=== PATIENT | male | born 1995 | race Caucasian/White ===

== ENCOUNTER → 2017-05-01 | Outpatient (CLI) | payer MEDICAID ==
[~2017-05-01] MED LIST: GADOBUTROL 10 ML VIAL IVP ONE
== END ==
LOC: FIMAGING 12:16
PROVIDERS: ATTEND Physician Assistant Medical
DX: G40.909 Epilepsy, unspecified, not intractable, without status epilepticus (principal)
CPT/HCPCS: A9585

== ENCOUNTER → 2017-05-09 | Outpatient (CLI) | payer MEDICAID ==
--- NOTE | 2017-05-09 19:17 | CPEEG ---
[f rep st] ELECTROENCEPHALOGRAM A 4-HOUR VIDEO EEG DATE OF STUDY: 05/09/2017 INTERPRETATION: This 4-hour video EEG recording is normal. There were no potentially epileptogenic abnormalities present during the awake or sleep recordings. During the video EEG monitoring session, the patient did not have any clinical events. REPORT: This 4-hour video EEG recording contained 9-10 Hz alpha activity over the posterior head regions. The background activity was normal and symmetric. There was no abnormal activation at rest, during photic stimulation, or hyperventilation. The patient became drowsy and fell into sustained sleep during the study. There was no abnormal activation during drowsiness, sustained sleep, or during times of arousal. The patient did not have any clinical events during the video EEG monitoring session. /[id number]/MODL MTDD
== END ==
LOC: FCPNEURO 08:51
PROVIDERS: ATTEND Psychiatry & Neurology Neurology
DX: G40.909 Epilepsy, unspecified, not intractable, without status epilepticus (principal)

== ENCOUNTER 2017-05-20 17:43 | Emergency (ER) | payer MEDICAID ==
[2017-05-20 18:00] VITALS: TEMP 98.1
[2017-05-20] MEDS ORDERED: ONDANSETRON 4 MG/2 ML VIAL ONE (18:01)
[2017-05-20] MEDS ORDERED: ONDANSETRON 4 MG/2 ML VIAL IVP ONE (18:04)
[2017-05-20] MEDS ORDERED: NS 1,000 ML IV ONE (18:04)
--- NOTE | 2017-05-20 18:11 | EDPHY ---
H & P Time Seen by Provider: 05/20/17 17:55 HPI/ROS: CHIEF COMPLAINT: Seizure x2 HISTORY OF PRESENT ILLNESS: 22-year-old man presents with his mother. He has had a seizure disorder diagnosed since age 18 and is currently transitioning from Dilantin to Keppra. In fact tomorrow was intended to be his last dose of Dilantin; he is tapering off since he was having breakthrough seizures on it. Today he had 2 seizures, the 1st one is inferred, because his roommates found him confused having bit his tongue at 2:00 p.m. When his mother came to pick him up his roommates report a 2nd seizure lasting 45 minutes around 4:30 or 5: 00 p.m.. Grand mal in nature. Currently the patient's chief complaint is he has severe nausea. REVIEW OF SYSTEMS: Eye: no change in vision ENT: no sore throat Cardiac: no chest pain or syncope Pulmonary: no cough or SOB Abdomen: Vomiting but no abdominal pain Musculoskeletal: no back pain or neck pain Skin: no rash Neuro: Mild headache Constitutional: no fever : no urinary symptoms A comprehensive 10 point review of systems is otherwise negative aside from elements mentioned in the history of present illness. PAST MEDICAL HISTORY: Seizure disorder Social history: Here with his mother, no alcohol General Appearance: Alert and conversant, cooperative. Eyes: No scleral icterus. ENT, Mouth: Left sided tongue abrasion, not bleeding Respiratory: Normal respiratory effort, breath sounds equal, lungs are clear to auscultation. Cardiovascular: Regular rate and rhythm. Gastrointestinal: Abdomen is soft and non tender. Neurological: Alert and oriented x3. Normally conversant. Face symmetric, normal movement and sensation in all extremities. Not tremulous. Toes downgoing bilaterally and no clonus. Skin: Warm and dry, no rashes. Musculoskeletal: No peripheral edema and no joint swelling. No spinal tenderness or stiff neck. Psychiatric: Not agitated. Emergency Department course/MDM: Mother describes the patient's last seizure was a week ago on Saturday. Currently the patient's neurologic examination is normal. He is Tanner Stauffer's patient. Call to associated neurologist, discussed with Dr. Casas. Zofran 4 mg IV for nausea and vomiting. 1954: Reviewed results with the patient and mother. Reviewed my discussion with Dr. Casas, and his recommendations for an additional 500 mg IV Keppra and then to discharge home with follow up by phone tomorrow with his Neurology provider. They state they are comfortable with that plan, we will observe him for another 45 minutes and then discharge. No further seizure activity or vomiting while in the emergency department. Smoking Status: Current every day smoker Constitutional: Initial Vital Signs Temperature (C) 36.7 C 05/20/17 17:57 Heart Rate 50 L 05/20/17 17:57 Respiratory Rate 16 05/20/17 17:57 Blood Pressure 124/83 H 05/20/17 17:57 O2 Sat (%) 100 05/20/17 17:57 O2 Delivery Mode Room Air Allergies/Adverse Reactions: No Known Allergies Allergy (Unverified 04/16/16 09:44) Home Medications: Medication Instructions Recorded Benatonin 04/16/16 Medical Decision Making Differential Diagnosis: Differential diagnosis considered for a seizure including but not limited to electrolyte abnormality, alcohol withdrawal, medication noncompliance, head injury, and breakthrough seizure. Consult/Admit Bed Type: [facility] deepti Stauffer 1814, Keppra 500mgIV and DC home - Data Points Laboratory Results: Laboratory Results 05/20/17 18:05 05/20/17 18:05 Medications Given: Discontinued Medications Sodium Chloride (Ns) 1,000 mls @ 0 mls/hr IV ONCE ONE PRN Reason: Wide Open Stop: 05/20/17 18:05 Last Admin: 05/20/17 18:05 Dose: 1,000 mls Levetiracetam 500 mg/ Sodium (Chloride) 105 mls @ 420 mls/hr IV EDNOW ONE Stop: 05/20/17 18:29 Last Admin: 05/20/17 19:38 Dose: 105 mls Ondansetron HCl (Zofran) 4 mg IVP EDNOW ONE Stop: 05/20/17 18:05 Last Admin: 05/20/17 18:05 Dose: 4 mg Departure - Departure Disposition: Home, Routine, Self-Care Clinical Impression: Seizure disorder Condition: Fair Instructions: Levetiracetam (By injection), Epilepsy (ED) Referrals: Job Stauffer PA [Physician Drawing In Hand] - 1 day without fail (per )
[2017-05-20] MEDS ORDERED: levETIRAcetam 500 MG in NS 100 ML IV ONE (18:15)
[2017-05-20 18:28] LABS: % IMMATURE GRANULYOCYTES 0.5 % (0.0-1.1); ABSOLUTE IMMATURE GRANULOCYTES 0.05 10^3/uL (0.00-0.10); ADD DIFF? NO; ADD MORPH? NO; ADD SCAN? NO; ATYPICAL LYMPHOCYTE FLAG 0 (0-99); FRAGMENT RBC FLAG 0 (0-99); HEMATOCRIT 44.1 % (40.0-51.0); HEMOGLOBIN 15.3 g/dL (13.7-17.5); LEFT SHIFT FLG 0 (0-99); LIPEMIA HEMOLYSIS FLAG 90 (0-99); MEAN CELL HEMOGLOBIN CONCENTR. 34.7 g/dL (32.4-36.7); MEAN CELL VOLUME 83.7 fL (81.5-99.8); MEAN PLATELET VOLUME 10.2 fL (8.7-11.7); PLATELET CLUMPS FLAG 0 (0-99); PLATELET COUNT 249 10^3/uL (150-400); RED BLOOD CELL COUNT 5.27 10^6/uL (4.40-6.38); RED CELL DISTRIBUTION WIDTH 13.1 % (11.5-15.2)
[2017-05-20 18:30] LABS: ANION GAP 17 mEq/L (8-16); CALCIUM 10.4 mg/dL (8.5-10.4); CARBON DIOXIDE 20 mEq/l (22-31); CHLORIDE 102 mEq/L (97-110); CREATININE 0.7 mg/dL (0.7-1.3); GLOMERULAR FILTRATION RATE > 60; GLUCOSE 103 mg/dL (70-100); SODIUM 139 mEq/L (134-144); SPECIMEN HEMOLYSIS 108
[2017-05-20 20:52] VITALS: BP 121/69; PULSE 84; RESP 20; O2SAT 93
== END 2017-05-20 20:52 | disposition home or self-care (01) ==
DX: G40.909 Epilepsy, unspecified, not intractable, without status epilepticus (principal); F17.200 Nicotine dependence, unspecified, uncomplicated
CPT/HCPCS: 96374; J1953; J2405

== ENCOUNTER 2017-05-20 21:55 | Observation (INO) | payer MEDICAID ==
[2017-05-20] MEDS ORDERED: NS 1,000 ML IV ONE (22:06)
[2017-05-20] MEDS ORDERED: LORazepam 2 MG/ML INJ IVP ONE (22:06)
--- NOTE | 2017-05-20 22:08 | EDPHY ---
H & P Stated Complaint: recurrent seizure; grand mal approx 2 min assisted to floor HPI/ROS: HPI CHIEF COMPLAINT: Seizure HISTORY OF PRESENT ILLNESS: This patient very pleasant 22-year-old male, was recently here in the emergency room for seizure x2 today. He now presents back to the emergency room the seizure for 3rd time. He has been transitioning off Dilantin to Keppra. Last dose of Keppra tomorrow. He was given a 500 mg IV dose of Keppra prior to being discharged home. He reports back to the emergency room by private vehicle after he had a seizure that lasted approximately 2 minutes. Witnessed by his mom generalized tonic-clonic. Postictal state. They return by private vehicle. Patient this time has no complaints. He is alert and oriented. No active seizure activity in the emergency room. Past Medical History: Seizure disorder Past Surgical History: No recent surgery Social History: Denies daily use of drugs alcohol tobacco products. Family History: Noncontributory ROS REVIEW OF SYSTEMS: A comprehensive 10 point review of systems is otherwise negative aside from elements mentioned in the history of present illness. Exam Constitutional appears well nontoxic thin appearing, triage nursing summary reviewed, vital signs reviewed, awake/alert. Eyes normal conjunctivae and sclera, EOMI, PERRLA. HENT oropharynx shows bruising to bilateral tongue, normal inspection, atraumatic, moist mucus membranes, no epistaxis, neck supple/ no meningismus, no raccoon eyes. Respiratory clear to auscultation bilaterally, normal breath sounds, no respiratory distress, no wheezing. Cardiovascular rate normal, regular rhythm, no murmur, no edema, distal pulses normal. Gastrointestinal soft, non-tender, no rebound, no guarding, normal bowel sounds, no distension, no pulsatile mass. Genitourinary no CVA tenderness. Musculoskeletal no midline vertebral tenderness, full range of motion, no calf swelling, no tenderness of extremities, no meningismus, good pulses, neurovascularly intact. Skin pink, warm, & dry, no rash, skin atraumatic. Neurologic awake, alert and oriented x 3, AAOx3, moves all 4 extremities equally, motor intact, sensory intact, CN II-XII intact, normal cerebellar, normal vision, normal speech. Psychiatric normal mood/affect. Heme/Lymph/Immune no lymphadenopathy. Differential Diagnosis: Includes but is not limited to in a particular order, epilepsy, seizure, breakthrough seizure, electrolyte disturbance, transitioning from [place] Keppra which is causing him to have a seizure Medical Decision Making: Given this patient has now had 3 seizures in 12 hours he will be admitted to the hospital for further observation for neurology to see as well. Here in emergency room I will give him IV Ativan. IV fluids. Check basic blood work and admit to the hospitalist service. Re-evaluation: 2215: I have consult the hospitalist service and spoke with Dr. Denney who agrees to admit this patient. Reason for admission multiple seizures today. Additionally will consult Neurology. Plan will be to admit. He is not in status. IV Keppra 500mg, and 1 mg IV ativan. Admit for neuro to see in am. 2226: Spoke with Kymberly Fontana with [facility] Recommend 1 Gram Keppra load. Admit to hospital. Neuro to see. Source: Patient - Personal History Current Tetanus/Diphtheria Vaccine: Yes - Medical/Surgical History Hx Asthma: No Hx Chronic Respiratory Disease: No Hx Diabetes: No Hx Cardiac Disease: No Hx Renal Disease: No Hx Cirrhosis: No Hx Alcoholism: No Hx HIV/AIDS: No Hx Splenectomy or Spleen Trauma: No Other PMH: PMHx: sz, daily THC use. PSHx: bilat hernia repairs, ear tubes - Social History Smoking Status: Current every day smoker Constitutional: Initial Vital Signs Temperature (C) 37.1 C 05/20/17 21:57 Heart Rate 87 05/20/17 21:57 Respiratory Rate 14 05/20/17 21:57 Blood Pressure 122/63 H 05/20/17 21:57 O2 Sat (%) 97 05/20/17 21:57 O2 Delivery Mode Room Air Allergies/Adverse Reactions: No Known Allergies Allergy (Unverified 04/16/16 09:44) Home Medications: Medication Instructions Recorded Albuterol [Proventil Inhaler HFA 1 - 2 puffs IH DAILY PRN 05/21/17 (*)] Herbals/Supplements -Info Only 1 ea PO DAILY 05/21/17 Loratadine [Claritin 10 mg] 10 mg PO DAILY PRN 05/21/17 levETIRAcetam [Keppra 500 mg (*)] 2,500 mg PO HS 05/21/17 Medical Decision Making - Data Points Medications Given: Discontinued Medications Sodium Chloride (Ns) 1,000 mls @ 0 mls/hr IV ONCE ONE PRN Reason: Wide Open Stop: 05/20/17 22:07 Last Admin: 05/20/17 22:34 Dose: 1,000 mls Levetiracetam 1,000 mg/ Sodium (Chloride) 110 mls @ 440 mls/hr IV EDNOW ONE Stop: 05/20/17 22:41 Last Admin: 05/20/17 22:52 Dose: 110 mls Levetiracetam 1,000 mg/ Sodium (Chloride) 110 mls @ 440 mls/hr IV EDNOW ONE Stop: 05/20/17 22:54 Last Admin: 05/21/17 01:27 Dose: 110 mls Influenza Virus Vaccine Quadrival (Fluarix Quad [id number]) 0.5 ml IM .ONCE ONE Stop: 05/21/17 10:09 Last Admin: 05/21/17 11:48 Dose: 0.5 ml Lorazepam (Ativan Injection) 1 mg IVP EDNOW ONE Stop: 05/20/17 22:07 Last Admin: 05/20/17 22:34 Dose: 1 mg Departure - Departure Disposition: [facility] Clinical Impression: Seizure disorder Condition: Good
[2017-05-20] MEDS ORDERED: ONDANSETRON 4 MG/2 ML VIAL IVP PRN (22:16)
[2017-05-20] MEDS ORDERED: LORazepam 2 MG/ML INJ IVP PRN (22:16)
[2017-05-20] MEDS ORDERED: ONDANSETRON DISINTEGRATING 4 MG TAB PO PRN (22:16)
[2017-05-20] MEDS ORDERED: ACETAMINOPHEN 325 MG TAB PO PRN (22:16)
[2017-05-20] MEDS ORDERED: levETIRAcetam 1,000 MG in NS 100 ML IV ONE ×2 (22:27→22:40)
[2017-05-20] MEDS ORDERED: levETIRAcetam 500 MG in NS 100 ML IV SCH (22:30)
[2017-05-20 22:37] LABS: % IMMATURE GRANULYOCYTES 0.3 % (0.0-1.1); ABSOLUTE IMMATURE GRANULOCYTES 0.03 10^3/uL (0.00-0.10); ADD DIFF? NO; ADD MORPH? NO; ADD SCAN? NO; ATYPICAL LYMPHOCYTE FLAG 0 (0-99); FRAGMENT RBC FLAG 0 (0-99); HEMATOCRIT 38.8 % (40.0-51.0); HEMOGLOBIN 13.6 g/dL (13.7-17.5); LEFT SHIFT FLG 0 (0-99); LIPEMIA HEMOLYSIS FLAG 90 (0-99); MEAN CELL HEMOGLOBIN 29.5 pg (27.9-34.1); MEAN CELL HEMOGLOBIN CONCENTR. 35.1 g/dL (32.4-36.7); MEAN CELL VOLUME 84.2 fL (81.5-99.8); MEAN PLATELET VOLUME 10.3 fL (8.7-11.7); PLATELET CLUMPS FLAG 10 (0-99); PLATELET COUNT 230 10^3/uL (150-400); RED BLOOD CELL COUNT 4.61 10^6/uL (4.40-6.38); RED CELL DISTRIBUTION WIDTH 13.1 % (11.5-15.2)
--- NOTE | 2017-05-20 23:02 | PDGENHP ---
History and Physical - Chief Complaint Seizure - History of Present Illness 22 yo M w/ hx of epilepsy presents with a seizure. He has long history of epilepsy with incomplete control of seizure activity as of late. He has had 4-5 seizures in the past few months so his neurologist was transitioning therapy from Dilantin to Keppra. He is currently taking Keppra 2g qHS and Dilantin 100 mg qD as part of a several week taper. Today he likely had an unwitnessed seizure around midday before his roommates came home as they noticed he had bit his tongue. He then had a witnessed GTC around 16:30 that lasted 4 minutes and stopped without intervention. At that point he was brought to ED for evaluation, given additional Keppra, and sent home. Once home he had another seizure around 17:30, described again as GTC. At the time of my evaluation patient is alert, oriented, and asymptomatic. He denies any recent illness, change in sleep habits, or new substance use to explain increase seizure frequency. History Information - Allergies/Home Medication List Allergies/Adverse Reactions: No Known Allergies Allergy (Unverified 04/16/16 09:44) Home Medications: Benatonin 04/16/16 [Last Taken Unknown] I have personally reviewed and updated: family history, medical history - Past Medical History Additional medical history: Epilepsy - Family History Positive for: cancer - Social History Smoking Status: Current every day smoker Drug Use: None Review of Systems Review of Systems: ROS: 10pt was reviewed & negative except for what was stated in HPI & below Physical Exam Physical Exam: Temp Pulse Resp BP Pulse Ox 37.1 C 80 16 117/58 L 97 05/20/17 21:57 05/20/17 22:54 05/20/17 22:54 05/20/17 22:54 05/20/17 22:54 Constitutional: no apparent distress, appears nourished Eyes: PERRL, EOMI Ears, Nose, Mouth, Throat: moist mucous membranes, no oral mucosal ulcers, other (Facial abrasions noted) Cardiovascular: regular rate and rhythym, no murmur, rub, or gallop Respiratory: no respiratory distress, clear to auscultation Gastrointestinal: normoactive bowel sounds, soft, non-tender abdomen Skin: warm, normal color Musculoskeletal: full muscle strength, no muscle tenderness Neurologic: AAOx3, sensation intact bilaterally, CN II-XII Intact, No weakness, No numbness, No facial droop Psychiatric: interacting appropriately, not anxious Lab Data & Imaging Review 05/20/17 22:30 05/20/17 22:30 WBC 9.04 10^3/uL (3.80-9.50) 05/20/17 22:30 RBC 4.61 10^6/uL (4.40-6.38) 05/20/17 22:30 Hgb 13.6 g/dL (13.7-17.5) L 05/20/17 22:30 Hct 38.8 % (40.0-51.0) L 05/20/17 22:30 MCV 84.2 fL (81.5-99.8) 05/20/17 22:30 MCH 29.5 pg (27.9-34.1) 05/20/17 22:30 MCHC 35.1 g/dL (32.4-36.7) 05/20/17 22:30 RDW 13.1 % (11.5-15.2) 05/20/17 22:30 Plt Count 230 10^3/uL (150-400) 05/20/17 22:30 MPV 10.3 fL (8.7-11.7) 05/20/17 22:30 Neut % (Auto) 89.0 % (39.3-74.2) H 05/20/17 22:30 Lymph % (Auto) 6.0 % (15.0-45.0) L 05/20/17 22:30 [place] % (Auto) 4.6 % (4.5-13.0) 05/20/17 22:30 Eos % (Auto) 0.0 % (0.6-7.6) L 05/20/17 22:30 Baso % (Auto) 0.1 % (0.3-1.7) L 05/20/17 22:30 Nucleat RBC Rel Count 0.0 % (0.0-0.2) 05/20/17 22:30 Absolute Neuts (auto) 8.04 10^3/uL (1.70-6.50) H 05/20/17 22:30 Absolute Lymphs (auto) 0.54 10^3/uL (1.00-3.00) L 05/20/17 22:30 Absolute Monos (auto) 0.42 10^3/uL (0.30-0.80) 05/20/17 22:30 Absolute Eos (auto) 0.00 10^3/uL (0.03-0.40) L 05/20/17 22:30 Absolute Basos (auto) 0.01 10^3/uL (0.02-0.10) L 05/20/17 22:30 Absolute Nucleated RBC 0.00 10^3/uL (0-0.01) 05/20/17 22:30 Immature Gran % 0.3 % (0.0-1.1) 05/20/17 22:30 Immature Gran # 0.03 10^3/uL (0.00-0.10) 05/20/17 22:30 Imaging Review: No abnormalities seen on MRI Brain 05/01 w/wo. Assessment & Plan Assessment: 22 yo M w/ known epilepsy presents with multiple seizures on day of admission. Plan: 1. Epilepsy with multiple seizures on day of admission - No clear trigger for increased seizure activity (no illness, change in sleep, stress, or substance use). Patient recently tapering off of Dilantin and transitioning to Keppra therapy, of which he takes 2g qHS. Laboratory work-up unremarkable. Phenytoin level undetectable, but this is to be expected noting he is now only on 100 mg qD. MRI Brain on 05/01 showed no abnormalities and current neurologic exam unremarkable. - ED spoke with neurology who Neurology who advised continuing with Keppra only for now - Has received Keppra 2.5 g IV total (Home dose is 2g) - Admit to SDU with seizure precautions for observation - Lorazepam 2 mg IV PRN for seizures - Neurology consulted Diet - Regular Code - Full Ppx - Low risk Dispo - Admit to observation status
[2017-05-20 23:16] VITALS: O2SAT 93
[2017-05-20 23:16] LABS: ANION GAP 13 mEq/L (8-16); CALCIUM 9.9 mg/dL (8.5-10.4); CARBON DIOXIDE 23 mEq/l (22-31); CHLORIDE 101 mEq/L (97-110); CREATININE 0.7 mg/dL (0.7-1.3); GLOMERULAR FILTRATION RATE > 60; GLUCOSE 101 mg/dL (70-100); POTASSIUM 4.2 mEq/L (3.5-5.2); SODIUM 137 mEq/L (134-144)
[2017-05-21 05:51] LABS: % IMMATURE GRANULYOCYTES 0.1 % (0.0-1.1); ABSOLUTE IMMATURE GRANULOCYTES 0.01 10^3/uL (0.00-0.10); ADD DIFF? NO; ADD MORPH? NO; ADD SCAN? NO; ATYPICAL LYMPHOCYTE FLAG 0 (0-99); FRAGMENT RBC FLAG 0 (0-99); HEMATOCRIT 35.6 % (40.0-51.0); HEMOGLOBIN 12.7 g/dL (13.7-17.5); LEFT SHIFT FLG 0 (0-99); LIPEMIA HEMOLYSIS FLAG 90 (0-99); MEAN CELL HEMOGLOBIN 29.7 pg (27.9-34.1); MEAN CELL HEMOGLOBIN CONCENTR. 35.7 g/dL (32.4-36.7); MEAN CELL VOLUME 83.4 fL (81.5-99.8); MEAN PLATELET VOLUME 10.3 fL (8.7-11.7); PLATELET CLUMPS FLAG 10 (0-99); PLATELET COUNT 199 10^3/uL (150-400); RED BLOOD CELL COUNT 4.27 10^6/uL (4.40-6.38); RED CELL DISTRIBUTION WIDTH 13.1 % (11.5-15.2)
[2017-05-21 06:02] LABS: ANION GAP 10 mEq/L (8-16); CALCIUM 8.9 mg/dL (8.5-10.4); CARBON DIOXIDE 21 mEq/l (22-31); CHLORIDE 108 mEq/L (97-110); CREATININE 0.6 mg/dL (0.7-1.3); GLOMERULAR FILTRATION RATE > 60; GLUCOSE 80 mg/dL (70-100); POTASSIUM 4.3 mEq/L (3.5-5.2); SODIUM 139 mEq/L (134-144)
[2017-05-21 08:08] VITALS: BP 95/43; PULSE 51; RESP 14; TEMP 98.4
[2017-05-21] MEDS ORDERED: FLU VACC QS 2017-18 (3YR+)/PF 0.5 ML SYR (FLUARIX QUAD) IM ONE (10:08)
--- NOTE | 2017-05-21 11:18 | NEUROPROG ---
Assessment: Mr. Hernandez was admitted under observation yesterday for 3 seizures. He has a background of cryptogenic epilepsy with normal MRI/EEG. He is followed by Job Stauffer PA-C in our clinic for his epilepsy. His last office visit was 05/14/17. Today represents a followup visit, with most of our time spent in counseling and coordination of care. 40 mins of direct patient care activities on the floor today. Patient is in the midst of transitioning from phenytoin to levetiracetam XR. He was last instructed to take levetiracetam XR 2500mg at night while finishing his phenytoin taper. However, the patient admits to only taking levetiracetam XR 2000mg nightly. He has not been ill, sleep deprived, under excess stress or excess fasting/dehydration. Yesterday roommates found him in what seemed like a postictal state. He later had a witnessed convulsion lasting 4 mins and was brought to the ED. I discussed the case with Dr. Bhakta and recommended the patient increased his levetiracetam to the recommended dose and stop phenytoin. Patient went home and mother witnessed another convulsion, so they brought him back. He had been given levetiracetam 1500mg IV and lorazepam 1mg IV yesterday. Overnight he's had no subsequent seizures. We discussed adhering to the recommended treatment plan. He voiced understanding and is going to start taking the recommended levetiracetam XR 2500mg nightly and stop the phenytoin. Discussed calling out office or after-hours line for any subsequent seizures lasting less than 5 mins. Seizures lasting longer than 5 mins should be evaluated in the ED. Prolonged postictal state should also result in ED visit. He will followup with Job Stauffer PA-C as previously planned. He does not drive (no license) and seizure safety precautions were reviewed. Objective: Vital Signs Temp Pulse Resp BP Pulse Ox 36.9 C 51 L 14 95/43 L 93 05/21/17 08:00 05/21/17 08:00 05/21/17 08:00 05/21/17 08:00 05/20/17 23:14 Laboratory Results 05/21/17 05:30 05/21/17 05:30 10/16/17 10/17/17 10/18/17 05:59 05:59 05:59 Intake Total 1240 Balance 1240 Allergies/Adverse Reactions: No Known Allergies Allergy (Unverified 04/16/16 09:44)
--- NOTE | 2017-05-21 14:42 | ASDISCHSUM ---
Discharge Information Plan Status:Home with No Needs Medically Cleared to Leave:05/21/2017 Discharge Date:05/21/2017 12:08 PM CM D/C Disposition:Home, Routine, Self-Care ADT D/C Disposition:Home, Routine, Self-Care Projected Discharge Date:05/21/2017 12:00 AM Transportation at D/C:Friend Discharge Delay Reason: Follow-Up Date:05/21/2017 12:00 AM Discharge Slot: Final Diagnosis:Epilepsy with SZ Placement Information Patient Contact Information Contact Name:ANGELICA Relationship:Mother Address:[address] Work Phone: [facility] Alternate Phone: [facility]/Zip Code:[place] [address] Email: Financial Information Financial Class: Primary Plan Desc:[employer] Primary Plan Number:[id number] Secondary Plan Desc: Secondary Plan Number: Assessment Information [facility] CM Progress Note CM Note CM Note Notes: 22 year old male admitted for SZ. Has a hx of epilepsy [facility] Patient was OBS status, cleared for discharge. No other needs. Date Signed: 05/21/2017 02:41 PM Electronically Signed By:Rita Reyes LCSW Intervention Information
--- NOTE | 2017-05-21 16:10 | GDS ---
[f rep st] DISCHARGE SUMMARY DISCHARGE DIAGNOSIS: Recurrent seizures. HISTORY: The patient is a 22-year-old male with a long history of epilepsy with incomplete seizure c ontrol, having multiple seizures in the last month. He was transitioning as an outpatient from Rafy tin to Keppra, but had not fully gotten to max dose Keppra on the day of discharge. He had 2 seizure s prior to admission. Eventually, being admitted to the hospital for further observation. He was se en here by Neurology, who was recommending he go to the max dose Keppra 2.5 g at bedtime and disconti nue Dilantin. We are hopeful that on this dosing the seizures will have better control. DISCHARGE MEDICATIONS: Please see computer record for full detailed list. There are no new medicati ons given at time of hospital discharge. He will increase his Keppra up to 25 mg p.o. at bedtime. DISCHARGE INSTRUCTIONS: Follow up with Neurology as indicated. The patient was seen examined by me on the day of discharge. /[id number]/MODL
== END 2017-05-21 12:08 | disposition home or self-care (01) ==
LOC: F2N 23:28
PROVIDERS: ADMIT Student in an Organized Health Care Education/Training Program; ATTEND Internal Medicine
DX: G40.909 Epilepsy, unspecified, not intractable, without status epilepticus (principal); F17.200 Nicotine dependence, unspecified, uncomplicated; Z23 Encounter for immunization
CPT/HCPCS: 90471; G0378; G0008; J1953; J2060